=== PATIENT | female | born 1955 | race Two or more races ===

== ENCOUNTER 2018-02-25 11:56 | Emergency (ER) | payer OTHER ==
[2018-02-25 12:00] VITALS: BP 159/81; PULSE 76; TEMP 98; BMI 28.8
--- NOTE | 2018-02-25 12:36 | PDOC ---
History of Present Illness - General Chief Complaint: Injury Stated Complaint: INJURY Time Seen by Provider: 02/25/18 12:29 - History of Present Illness Initial Comments: 62-year-old female with past medical history significant for dyslipidemia she takes a statin she is unsure of her current tetanus status Zentz for evaluation after a mechanical fall at home. She has complaints of left wrist pain right great toe pain and facial abrasions. No post injury nausea vomiting or headache. No loss consciousness. 02/25/18 12:34 Past History - Past Medical History Allergies/Adverse Reactions: Allergies Allergy/AdvReac Type Severity Reaction Status Date / Time No Known Allergies Allergy Verified 02/25/18 12:00 Home Medications: Ambulatory Orders NK [No Known Home Medication] 02/25/18 COPD: No Hypercholesterolemia: Yes - Suicide/Smoking/Psychosocial Hx Smoking History: Never smoked Review of Systems - Review of Systems Musculoskeletal: Yes: See HPI, Joint Pain All Other Systems: Reviewed and Negative *Physical Exam - Vital Signs Last Vital Signs Temp Pulse Resp BP Pulse Ox 98 F 76 18 159/81 100 02/25/18 11:57 02/25/18 11:57 02/25/18 11:57 02/25/18 11:57 02/25/18 11:57 - Physical Exam Comments: HEAD: NC/ there are superfical abrasion on the anterior aspect of the nose and forehead EYES: Conjuntiva clear, EOMI, PERRL Ears: Canals and TM's normal NOSE: No d/c THROAT: Moist mucous membrances, oral pharanx clear, uvula midline NECK: Supple without adenopathy CARDIAC: S1 S2 LUNGS: CTA Full and Equal breath sounds ABDOMEN: Soft NT ND MS: Full ROM in all joints without edema NEUROLOGIC: No gross sensory or motor deficits, NVID, negative Romberg maneuver SKIN: Normal color and temperature no lesions or rashes Left wrist skin color and temperature are normal. Range of motion is full with minimal pain. There is mild tenderness at the base of the fifth metacarpal. 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 No gross sensorimotor deficits. Right great toe there is a small abrasion on the anterior aspect of the great toe just distal to the nail fold. Range of motion is decreased. There is tenderness about the IPJ of the toe. No gross sensorimotor deficits. 02/25/18 12:35 02/25/18 12:45 ED Treatment Course - RADIOLOGY Radiology Studies Ordered: Category Date Time Status FACIAL BONES CT W/O CONTRAST [CT] Stat CT Scan 02/25/18 12:[address] WITHOUT CONTRAST [CT] Stat CT Scan 02/25/18 12:33 Ordered TOE(S) RIGHT [RAD] Stat Radiology 02/25/18 12:33 Ordered WRIST-LEFT [RAD] Stat Radiology 02/25/18 12:33 Ordered Medical Decision Making - Medical Decision Making X-rays is a left hand and right great toe show no evidence of fracture 02/25/18 13:26 02/25/18 13:54 CAT scans which were reviewed and negative localized wound care with soap and water to face follow-up with PCP *DC/Admit/Observation/Transfer Diagnosis at time of Disposition: Facial abrasion, Hand contusion, Toe contusion - Referrals Referrals: Kannan Arenas [Non Staff, Medical] - Larry Augustine MD [Staff Physician] - - Patient Instructions Printed Discharge Instructions: How to Prevent Falls, Contusion, DI for Abrasion Additional Instructions: Return to the emergency room should symptoms worsen or go unresolved. Please follow-up with the primary care doctor in once 2 days further evaluation and treatment options as well as wound management. Also follow-up with orthopedic surgery in 2-3 days should you continue to have pain and your [id number]. Keep the abrasions clean with soap and water and you may leave them open to air. - Post Discharge Activity
[2018-02-25] MEDS ORDERED: DIPHTH,PERTUSS(ACELL),TET 0.5 ML DISP.SYRIN IM ONE (12:45)
== END 2018-02-25 14:02 | disposition home or self-care (01) ==
LOC: JERFT 11:56
PROC: 3E0234Z Introduction of Serum, Toxoid and Vaccine into Muscle, Percutaneous Approach (ICD-10-PCS; principal; 2018-02-25)
DX: S60.212A Contusion of left wrist, initial encounter (principal); S90.111A Contusion of right great toe without damage to nail, initial encounter; S00.81XA Abrasion of other part of head, initial encounter; W18.39XA Other fall on same level, initial encounter; Y93.89 Activity, other specified; Y92.018 Other place in single-family (private) house as the place of occurrence of the external cause; Y99.8 Other external cause status
CPT/HCPCS: 70450-TC; 70486-TC; 73110-TC-LR-FY; 73660-TC-FY; 90715; 99281-25

== ENCOUNTER 2018-12-11 21:06 | Emergency (ER) | payer OTHER ==
--- NOTE | 2018-12-11 21:14 | PDOC ---
Rapid Medical Evaluation Chief Complaint: Injury Time Seen by Provider: 12/11/18 21:08 Medical Evaluation: Allergies Allergy/AdvReac Type Severity Reaction Status Date / Time No Known Allergies Allergy Verified 02/25/18 12:00 12/11/18 21:09 I have performed a brief in-person evaluation of this patient. The patient presents with a chief complaint of: stumbled and fell forward , struck face and nose. thinks had brief LOC, Pertinent physical exam findings: superficial abrasions to forhead/ upper nose I have ordered the following: CtHead/ facial bones The patient will proceed to the ED for further evaluation. 12/11/18 21:15 Discharge Disposition - Diagnosis Neck pain, Facial abrasion, Hand contusion Head trauma Qualifiers: Encounter type: initial encounter Qualified Code(s): S09.90XA - Unspecified injury of head, initial encounter - Discharge Dispostion Disposition: HOME Condition at time of disposition: Improved - Referrals Referrals: Emily Llamas MD [Primary Care Provider] - Call tomorrow - Patient Instructions Printed Discharge Instructions: Concussion Additional Instructions: rest and relax as much as possible. apply bacitracin to the area. keep it covered from the sun Additional Instructions: * Please call your personal physician to report your Emergency Department visit and to report your progress, if any. * If there is no improvement in symptoms in 2 days call your physician. * Return to the Emergency Department for any worsening symptoms. - Post Discharge Activity Work/School Note: Back to Work
[2018-12-11 21:17] VITALS: BP 162/78; PULSE 74; TEMP 98.1; BMI 29.2
--- NOTE | 2018-12-11 22:04 | PDOC ---
History of Present Illness - General Chief Complaint: Injury Stated Complaint: FALL Time Seen by Provider: 12/11/18 21:08 History Source: Patient - History of Present Illness Initial Comments: 12/11/18 23:55 63-year-old female complaining of trip and fall landing on phase after missing a step while wearing flip-flops complaining of neck pain with headache. Denies LOC, nausea, vomiting. Patient is also complaining of left wrist pain. Past medical history of hypercholesterolemia on Zocor 12/11/18 23:58 tetanus last year Past History - Past Medical History Allergies/Adverse Reactions: Allergies Allergy/AdvReac Type Severity Reaction Status Date / Time No Known Allergies Allergy Verified 12/11/18 21:11 Home Medications: Ambulatory Orders NK [No Known Home Medication] 02/25/18 COPD: No Hypercholesterolemia: Yes - Suicide/Smoking/Psychosocial Hx Smoking History: Never smoked Review of Systems - Review of Systems Able to Perform ROS?: Yes Is the patient limited Irish proficient: No Constitutional: No: Symptoms Reported, See HPI, Chills, Diaphoresis, Fever, Loss of Appetite, Malaise, Night Sweats, Weakness, Weight Stable, Unintentional Wgt. Loss, Unexplained wgt Loss, Other Neurological: Yes: Headache *Physical Exam - Vital Signs Last Vital Signs Temp Pulse Resp BP Pulse Ox 98.1 F 74 18 162/78 99 12/11/18 21:07 12/11/18 21:07 12/11/18 21:07 12/11/18 21:07 12/11/18 21:07 - Physical Exam General Appearance: Yes: Appropriately Dressed HEENT: positive: Other (frontal area hematoma to the left side, abrasion to nose and left cheek and chin, no deformity) Extremity: positive: Normal Capillary Refill, Normal Inspection, Normal Range of Motion, Other (able to make a fist with left wrist. Tenderness over the fourth and fifth metacarpal area. No deformity) Integumentary: positive: Normal Color, Dry, Warm Neurologic: positive: Fully Oriented, Alert Medical Decision Making - Medical Decision Making A: facial/ head trauma P: ct head/ c-spine; facial bones left wrist pain: xray no acute fracture *DC/Admit/Observation/Transfer Diagnosis at time of Disposition: Neck pain Head trauma Qualifiers: Encounter type: initial encounter Qualified Code(s): S09.90XA - Unspecified injury of head, initial encounter Facial abrasion Qualifiers: Encounter type: initial encounter Qualified Code(s): S00.81XA - Abrasion of other part of head, initial encounter Hand contusion Qualifiers: Encounter type: initial encounter Laterality: left Qualified Code(s): S60.222A - Contusion of left hand, initial encounter - Discharge Dispostion Disposition: HOME Condition at time of disposition: Improved - Referrals Referrals: Emily Llamas MD [Primary Care Provider] - Call tomorrow - Patient Instructions Printed Discharge Instructions: Concussion Additional Instructions: rest and relax as much as possible. apply bacitracin to the area. keep it covered from the sun Additional Instructions: * Please call your personal physician to report your Emergency Department visit and to report your progress, if any. * If there is no improvement in symptoms in 2 days call your physician. * Return to the Emergency Department for any worsening symptoms. - Post Discharge Activity Forms/Work/School Notes: Back to Work
--- NOTE | 2018-12-11 22:30 | PDOC ---
*Physical Exam - Vital Signs Last Vital Signs Temp Pulse Resp BP Pulse Ox 98.1 F 74 18 162/78 99 12/11/18 21:07 12/11/18 21:07 12/11/18 21:07 12/11/18 21:07 12/11/18 21:07 Medical Decision Making - Medical Decision Making 12/11/18 22:30 Patient seen by the advanced practice provider under my direct supervision. Ancillary testing reviewed as necessary. I agree with plan as outlined by the advanced practice provider. *DC/Admit/Observation/Transfer Diagnosis at time of Disposition: Neck pain Head trauma Qualifiers: Encounter type: initial encounter Qualified Code(s): S09.90XA - Unspecified injury of head, initial encounter Facial abrasion Qualifiers: Encounter type: initial encounter Qualified Code(s): S00.81XA - Abrasion of other part of head, initial encounter Hand contusion Qualifiers: Encounter type: initial encounter Laterality: left Qualified Code(s): S60.222A - Contusion of left hand, initial encounter - Discharge Dispostion Disposition: HOME Condition at time of disposition: Improved - Referrals Referrals: Emily Llamas MD [Primary Care Provider] - Call tomorrow - Patient Instructions Printed Discharge Instructions: Concussion Additional Instructions: rest and relax as much as possible. apply bacitracin to the area. keep it covered from the sun Additional Instructions: * Please call your personal physician to report your Emergency Department visit and to report your progress, if any. * If there is no improvement in symptoms in 2 days call your physician. * Return to the Emergency Department for any worsening symptoms. - Post Discharge Activity Forms/Work/School Notes: Back to Work
[2018-12-11] MEDS ORDERED: ACETAMINOPHEN 325 MG TABLET (FP) PO ONE (23:34)
[2018-12-11] MEDS ORDERED: BACITRACIN 15 GM TUBE TOPICAL OINTMENT TP ONE (23:35)
[2018-12-11] MEDS ORDERED: ACETAMINOPHEN 325 MG TABLET (FP) ONE (23:36)
[2018-12-11] MEDS ORDERED: BACITRACIN 0.9 GM PACKET ONE (23:36)
[2018-12-12] MEDS ORDERED: ACETAMINOPHEN 325 MG TABLET (FP) ONE (00:02)
== END 2018-12-12 00:33 | disposition home or self-care (01) ==
LOC: JER 21:06
DX: S00.81XA Abrasion of other part of head, initial encounter (principal); S60.222A Contusion of left hand, initial encounter; M54.2 Cervicalgia; W10.8XXA Fall (on) (from) other stairs and steps, initial encounter; Y93.89 Activity, other specified; Y92.89 Other specified places as the place of occurrence of the external cause; Y99.8 Other external cause status
CPT/HCPCS: 70450-TC; 70486-TC; 72125-TC; 73110-TC-LT-FY; 73130-TC-LT-FY; 99282-25

== ENCOUNTER 2020-01-26 16:40 | Observation (INO) | payer OTHER ==
--- NOTE | 2020-01-26 16:44 | PDOC ---
History of Present Illness - General Chief Complaint: Syncope/Near Syncope Stated Complaint: FALL Time Seen by Provider: 01/26/20 16:43 History Source: Patient, Family - History of Present Illness Initial Comments: 01/26/20 16:43 Cely Arias is a 64F with PMH HLD presenting with syncope and fall with posterior head injury. Patient was picking vegetables in her garden when she suddenly passed out from s tanding with no warning or prodrome. Per at bedside, went to pick some vegetables when he heard a noise, turned around and patient had passed out onto the ground. Was unconscious for about a minute before she woke up and he helped her to a chair, was back to baseline mental status at this time but EMS called. Patient denies chest pain, SOB, cough, fever, palpitations, abd pain, urinary s x, constipation/diarrhea. Per at baseline mental status. Denies vision changes, dizziness, weakness, numbness. Able to walk after event. Says she felt well today. No sick contacts. Ate breakfast and lunch, drank 2 glasses of water prior to event. No prior cardiac history. Tripped and fell two years ago and had face laceration, had Boostrix then. NKDA. No PSH. Only med is simvastatin, no AC. Denies alcohol/drugs/tobacco use. Past History - Medical History Allergies/Adverse Reactions: Allergies Allergy/AdvReac Type Severity Reaction Status Date / Time No Known Allergies Allergy Verified 01/26/20 16:56 Home Medications: Ambulatory Orders Simvastatin [Zocor] 20 mg PO HS 01/26/20 COPD: No Hypercholesterolemia: Yes - Psycho-Social/Smoking History Smoking History: Never smoked Review of Systems - Review of Systems Able to Perform ROS?: Yes Constitutional: No: Symptoms Reported HEENTM: No: Symptoms Reported Respiratory: No: Symptoms reported Cardiac (ROS): Yes: Syncope ABD/GI: No: Symptoms Reported : No: Symptoms Reported Musculoskeletal: No: Symptoms Reported Integumentary: No: Symptoms Reported Neurological: No: Symptoms reported Endocrine: No: Symptoms Reported Hematologic/Lymphatic: No: Symptoms Reported All Other Systems: Reviewed and Negative *Physical Exam - Physical Exam General Appearance: Yes: Nourished, Appropriately Dressed, Other (resting comfortably in bed in NAD, some blood in hair). No: Apparent Distress HEENT: positive: EOMI, HINA, Normal Voice, Symmetrical, Pharynx Normal, Hearing Grossly Normal. negative: Scleral Icterus (R), Scleral Icterus (L), Pharyngeal Erythema, Tonsillar Exudate, Tonsillar Erythema Neck: positive: Trachea midline, Normal Thyroid, Supple. negative: Tender, Rigid, Lymphadenopathy (R), Lymphadenopathy (L), Tender lateral, Tender midline Respiratory/Chest: positive: Lungs Clear, Normal Breath Sounds. negative: Chest Tender, Respiratory Distress, Accessory Muscle Use, Decreased Breath Sounds, Crackles, Rales, Rhonchi, Stridor, Wheezing, Plerual Rub Cardiovascular: positive: Regular Rhythm, Regular Rate. negative: Tachycardia Gastrointestinal/Abdominal: positive: Normal Bowel Sounds, Flat, Soft. negative: Tender, Organomegaly, Pulsatile Mass, Distended, Guarding, Rebound, Hernia Musculoskeletal: positive: Normal Inspection, Vertebral Tenderness. negative: CVA Tenderness Extremity: positive: Normal Capillary Refill, Normal Inspection, Normal Range of Motion, Pelvis Stable. negative: Tender, Pedal Edema, Swelling, Calf Tenderness Integumentary: positive: Normal Color, Dry, Warm, Other (abrasion to posterior head with blood in hair, no active bleeding) Neurologic: positive: computer analyst II-XII NML intact, Fully Oriented, Alert, Normal Mood/Affect, Normal Response, Motor Strength 5/5, Finger to Nose (normal). negative: Facial Droop, Numbness, Sensory Deficit Procedures - Laceration/Wound Repair Posterior Head Wound Length: to 2.5 cm (1mm) Wound Explored: clean Wound's Depth, Shape: superficial Irrigated w/ Saline: Yes Betadine Prep: No Wound Debrided: minimal Wound Repaired With: Meg (2 meg placed) Heart Score/ECG Review - History History: Highly suspicious - Electrocardiogram EKG: Non specific repolarization disturbance - Age Age: >/= 65 - Risk Factors Risk Factors Heart Score: Yes Hx Hypercholesterolemia Based on the list above the patient has:: 1-2 risk factors ED Treatment Course - LABORATORY CBC & Chemistry Diagram: 01/26/20 17:10 01/26/20 17:10 Medical Decision Making - Medical Decision Making 01/26/20 17:26 Patient his history of HLD and no other cardiac history or anticoagulation presenting with sudden onset syncope without prodrome concerning for arrhythmia vs. ACS. Lower suspicion of dehydration vs. metabolic abnormality vs. TIA, no neuro deficits on exam. BP 170/85, patient has had HTN in the past but having TOMPKINS at this time, bringing to CT REE. Has small laceration to back of head without active bleeding, needs 1 staple, will fix after CT head. No need for Boostrix, got 2 years ago here. Evaluating broadly via: CBC/CMP/CP/ECG/CXR/Mag/Coags/UA/UC, with CT head and c- spine for evaluation of fall. Giving Ofirmev for pain control. ECG shows sinus rhythm with 1st degree AV block, HR 78, QTc 449, no DONTE/D or TWI. CXR unremarkable. HEART score 5, concern for 6-week cardiac mortality, will admit to tele/obs for syncope. Labs notable for: - CBC WNL - Coags WNL - CMP WNL - CP WNL 01/26/20 18:17 CT head done. Fixing laceration with [address] scan results. 01/26/20 18:55 Patient will be signed out to admitting residents. Signing out to night team. Plan for CT read and admit to tele/obs for syncope. Discharge - Discharge Information Problems reviewed: Yes Clinical Impression/Diagnosis: Syncope and collapse Condition: Stable - Admission Yes - Follow up/Referral Referrals: Emily Llamas MD [Primary Care Provider] - - Patient Discharge Instructions - Post Discharge Activity
[2020-01-26 16:56] VITALS: BMI 26.7
[2020-01-26] MEDS ORDERED: ACETAMINOPHEN 1000 MG/100 ML VIAL (NON FORMULARY) IVPB ONE (17:10)
[2020-01-26] MEDS ORDERED: ACETAMINOPHEN INJECTION 100 ML IVPB ONE (17:16)
[2020-01-26 17:29] LABS: BASO % 1.3 % (0-2.0); EOS % 1.9 % (0-4.5); HEMATOCRIT 36.3 % (32.4-45.2); LYMPH % 30.1 % (8-40); MCH 30.1 pg (25.7-33.7); MEAN PLT VOLUME 8.2 fl (7.5-11.1); MONO % 9.7 % (3.8-10.2); PLATELET COUNT 225 K/MM3 (134-434); RBC 3.99 M/mm3 (3.60-5.2); RDW 13.2 % (11.6-15.6); WHITE BLOOD COUNT 5.2 K/mm3 (4.0-10.0)
[2020-01-26 17:37] LABS: INR 0.97 (0.83-1.09); PROTHROMBIN TIME (PATIENT) 11.5 SEC (9.7-13.0)
[2020-01-26 17:40] LABS: ACTIVATED PTT 30.2 SECONDS (25.2-36.5)
[2020-01-26 18:03] LABS: ALBUMIN 3.8 g/dl (3.4-5.0); ALK PHOS 55 U/L (45-117); ANION GAP 9 MMOL/L (8-16); BILIRUBIN,TOTAL 0.3 mg/dL (0.2-1); BLOOD UREA NITROGEN 10.2 mg/dL (7-18); CALCIUM 8.8 mg/dL (8.5-10.1); CHLORIDE 105 mmol/L (98-107); CO2 25 mmol/L (21-32); CREATININE 0.8 mg/dL (0.55-1.3); GLUCOSE,RANDOM 156 mg/dL (74-106); MAGNESIUM 1.9 mg/dL (1.8-2.4); N-TERMINAL BNP 47.4 pg/ml (5-125); POTASSIUM 3.9 mmol/L (3.5-5.1); SGOT/AST 15 U/L (15-37); SGPT/ALT 23 U/L (13-61); SODIUM 139 mmol/L (136-145)
--- NOTE | 2020-01-26 18:23 | PDOC ---
Documentation entered by Deb Quintanilla SCRIBE, acting as scribe for Janee Vasquez MD. Janee Vasquez MD: This documentation has been prepared by the Socorro soares Xhesika, SCRIBE, under my direction and personally reviewed by me in its entirety. I confirm that the documentation accurately reflects all work, treatment, procedures, and medical decision making performed by me. Attending Attestation - Resident Resident Name: VinayTommy - ED Attending Attestation I have performed the following: I have examined & evaluated the patient, The case was reviewed & discussed with the resident, I agree w/resident's findings & plan, Exceptions are as noted - HPI HPI: 01/26/20 17:07 The patient is a 64y/o F with a PMH of HLD who presents to the ED with posterior head laceration s/p syncope. Pt states she was outside picking vegetables in her garden when she passed out, hitting the back of her head. Per , the patient was unconscious for about a minute before waking up. states, the pt went back to baseline shortly after. Pt does not recall the event all she remembers is giving her the vegetables. Pt reports a headache but denies any other complaints. Pt states she felt well throughout her day today. Pt denies chest pain, SOB, fever, chills, cough/ N/V/D. Pt denies any URI symptoms. Allergies: NKDA PCP: Emily Johnson - Physicial Exam PE: 01/26/20 18:19 awake alert no acute distress posterior aspect of the head shows a small punctate scalp laceration approximately 1 mm with some oozing no palpable skull defect cranial nerves are intact patient is awake alert and oriented x3 lungs are clear bilaterally heart is regular murmurs rubs or gallops abdomen soft nontender extremities are atraumatic nontender with full range of motion of all 4 extremities no noted peripheral edema or calf tenderness 2+ symmetric DP PT pulses. Neurologically the patient is a GCS of 15 strength is symmetric throughout and sensation is intact speech is clear - Medical Decision Making 01/26/20 18:20 64-year-old female status post syncopal episode while in the garden now complaining of a headache did hit her head with noted scalp laceration. Differential includes dysrhythmia ACS dehydration orthostasis anemia electrolyte abnormality or dysrhythmia. Concerns for intracranial hemorrhage or trauma secondary to her fall plan CT head this chest x-ray EKG troponin CBC CMP Chest x-ray is unremarkable CT head is without acute bleed or other abnormalities awaiting for official radiology read. EKG shows normal sinus rhythm no ST elevations or depressions normal rate of 78 bpm labs including CBC CMP and troponin are all negative or normal plan to admit the patient to telemetry for syncope stable placed to the single scalp laceration Discharge - Discharge Information Problems reviewed: Yes Clinical Impression/Diagnosis: Syncope and collapse Condition: Stable - Follow up/Referral Referrals: Emily Llamas MD [Primary Care Provider] - - Patient Discharge Instructions - Post Discharge Activity
--- NOTE | 2020-01-26 19:29 | PN ---
Teaching Attending Note Name of Resident: Johnie Flor ATTENDING PHYSICIAN STATEMENT I saw and evaluated the patient. I reviewed the resident's note and discussed the case with the resident. I agree with the resident's findings and plan as documented. SUBJECTIVE: Patient is a 64 year old woman with a PMH of Hyperlipidemia, Palpitations, C- section and Falls presenting with syncope and fall with posterior head injury. Patient was picking vegetables in her garden when she suddenly passed out from standing with no warning or prodrome. Per at bedside, went to pick some vegetables when he heard a noise, turned around and patient had passed out onto the ground. Was unconscious for about a minute before she woke up and he helped her to a chair, was back to baseline mental status at this time but EMS called. Patient denies vision change, weakness, chest pain, shortness of breath, abdominal pain, headache, palpitations, dizziness, fever, chills, nausea, vomiting, diarrhea, constipation, dysuria, frequency, urgency, melena, hematochezia or hematuria. Per at baseline mental status. Able to walk after event. Says she felt well today. No sick contacts. Ate breakfast and lunch, drank 2 glasses of water prior to event. No prior cardiac history. 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 Tripped and fell two years ago and had face laceration, had Boostrix then. Denies alcohol, tobacco or illicit drug use. No sick contacts or recent travels. Family history is unremarkable. OBJECTIVE: Alert and not orthostatic Vital Signs Period Temp Pulse Resp BP Sys/Davison Pulse Ox Last 24 Hr 97.9 F-99 F 70-80 18-20 161-172/84-91 98-98 HEENT: No Jaundice, eye redness or discharge, PERRLA, EOMI. Normocephalic; small laceration in occipital scalp. External ears are normal and hearing is grossly intact. No nasal discharge. Neck: Supple, nontender. No palpable adenopathy or thyromegaly. No JVD Chest: Good effort. Clear to auscultation and percussion. Heart: Regular. No S3, rub or murmur Abdomen: Not distended, soft, nontender and no HSM. No rebound or guarding. Normal bowel sounds. Ext: Peripheral pulses intact. No leg edema. Skin: Warm and dry. No petechiae, rash or ecchymosis. Neuro: Alert. Oriented x3. CN 2-12 grossly intact. Sensation grossly intact in all four extremities and DTR are symmetric. Psych: Appropriate mood and affect. Good insight. Home Medications Medication Instructions Recorded Simvastatin [Zocor] 20 mg PO HS 01/26/20 Abnormal Lab Results 01/26/20 01/26/20 17:10 17:48 Random Glucose 156 H Ur Specific [place] 1.008 L Current Medications Generic Name Dose Route Start Last Admin Trade Name Bossman PRN Reason Stop Dose Admin Ceftriaxone Sodium 1 gm/ 50 mls @ 100 mls/hr 01/26/20 21:15 01/26/20 21:39 Dextrose IVPB 100 mls/hr DAILY DUTCH Administration Protocol ASSESSMENT AND PLAN: 1. Syncope/Subdural hematoma/?UTI - Etiology of syncope unclear. Preliminary report of noncontrast head CT scan shows trace subdural hematoma with no evidence of acute intracranial pathology. Neurosurgery consulted by ER staff, and no intervention recommended for subdural hematoma. C-spine CT shows multilevel multi-factorial spondylosis with no fracture or subluxation. CXR sh ows cardiomegaly with increased interstitial markings and possible RUL nodule - out patient follow up with CT chest for nodule. EKG shows NSR at 78/minute and QTc 449, 1o AV block with no ischemic ST-T wave changes. Initial troponin is negative. Will admit to telemetry, treat with IV Ceftriaxone for UTI, give DPT vaccine, trend troponin, get ECHO, TSH, urine toxicology, carotid doppler, fasting lipids, brain MRI, do speech and swallow evaluation, neurochecks and implement fall/aspiration/seizure precautions. Consult PT/Neurology. Viral testing for COVID-19 ordered and patient placed on airborne, droplet and contact isolation. Will continue comprehensive care for all of patients comorbid conditions. 2. ?Hypertension May have undiagnosed hypertension. BP was very high (>155/90) during her ER visits in 2018 and 2019. Will monitor closely and consider starting HCTZ 12.5 mg on discharge. Patient counseled on the injurious effects of uncontrolled hypertension. Nonpharmacologic measures to control hypertension like weight loss, salt restriction and exercise stressed. Importance of adherence to treatment regimen and attainment of normotension emphasized. 3. DVT prophylaxis - Lovenox 40 mg SQ q 24 hours. 4. Advance directives - Full code
--- NOTE | 2020-01-26 19:49 | HP ---
CHIEF COMPLAINT: syncopal episode PCP: HISTORY OF PRESENT ILLNESS: Patient is a 64 year old female with history of hyperlipidemia, palpitations presents after syncopal episode. Occurred approx 13:00 in afternoon. Patient endorses that she was outside in vegetable garden picking peppers, and beans with her . She states she had asked her to get a few more vegetables when she suddenly lost consciousness and fell. Patient denies any prodromal chest pain, palpitations, shortness of breath, dizziness, changes in vision, or nausea. This was not witnessed by the as he had walked away, however he did hear her fall. She was on ground for approx one minute, and after he helped her up she remained confused for approx five minutes. He denies any shaking, bowel or bladder incontinence. Patient states that she ate a croissant with coffee for breakfast with two glasses of water. Patient endorses an exercise stress test performed approx one year ago for workup of palpitations. She states normal results. ER course was notable for: (1) CT head (2) CT cervical spine (3) EKG reveals sinus rhythm at 78 BPM with first degree AV block. 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 Lives in home with . Ambulates without cane or walker; independent in activities daily living. Smoking: Denies smoking cigarettes Alcohol: Denies alcohol consumption Drugs: Denies illicit drug use Allergies No Known Allergies Allergy (Verified 01/26/20 16:56) HOME MEDICATIONS: Home Medications Medication Instructions Recorded Simvastatin [Zocor] 20 mg PO HS 01/26/20 REVIEW OF SYSTEMS CONSTITUTIONAL: Absent: fever, chills, diaphoresis, generalized weakness, malaise, loss of appetite, weight change HEENT: Absent: rhinorrhea, nasal congestion, throat pain, throat swelling, difficulty swallowing, mouth swelling, ear pain, eye pain, visual changes CARDIOVASCULAR: Admits: syncopal episode. Absent: chest pain, palpitations, irregular heart rate, lightheadedness, peripheral edema RESPIRATORY: Absent: cough, shortness of breath, dyspnea with exertion, orthopnea, wheezing, stridor, hemoptysis GASTROINTESTINAL: Absent: abdominal pain, abdominal distension, nausea, vomiting, diarrhea, constipation, melena, hematochezia GENITOURINARY: Absent: dysuria, frequency, urgency, hesitancy, hematuria, flank pain, genital pain MUSCULOSKELETAL: Absent: myalgia, arthralgia, joint swelling, back pain, neck pain SKIN: Absent: rash, itching, pallor HEMATOLOGIC/IMMUNOLOGIC: Absent: easy bleeding, easy bruising, lymphadenopathy, frequent infections ENDOCRINE: Absent: unexplained weight gain, unexplained weight loss, heat intolerance, cold intolerance NEUROLOGIC: Absent: headache, focal weakness or paresthesias, dizziness, unsteady gait, seizure, mental status changes, bladder or bowel incontinence PSYCHIATRIC: Absent: anxiety, depression, suicidal or homicidal ideation, hallucinations. PHYSICAL EXAMINATION Vital Signs - 24 hr 01/26/20 01/26/20 01/26/20 16:51 17:22 18:56 Temperature 99 F 97.9 F Pulse Rate 80 Pulse Rate [ 78 70 Apical] Respiratory 18 18 20 Rate Blood Pressure 170/91 Blood Pressure 172/85 H 161/84 [Right Arm] O2 Sat by Pulse 98 98 98 Oximetry (%) GENERAL: The patient is awake, alert, and fully oriented, in no acute distress. HEAD: Normocephalic. 1cm laceraion, stapled over vertex. EYES: PERRL, extraocular movements intact, sclera anicteric, conjunctiva clear. ENT: Oropharynx clear, without erythema or exudates. Moist mucous membranes. Negative tongue bite lesions. NECK: Trachea midline, full range of motion. Supple without lymphadenopathy. LUNGS: Breath sounds equal, clear to auscultation bilaterally. No wheezes, no crackles. No accessory muscle use. HEART: Regular rate and rhythm. S1, S2 without murmur, rub or gallop. ABDOMEN: Soft, nondistended, nontender to light and deep palpation x4 quadrants. No rebound tenderness, no guarding. Normoactive bowel sounds x4 quadrants. No hepatosplenomegaly, no masses appreciated. EXTREMITIES: 2+ radial, dorsalis pedis pulses bilaterally. Warm, well-perfused. No lower extremity edema bilaterally. NEUROLOGICAL: Cranial nerves II through XII grossly intact. Normal speech. No gross focal deficits. Strength 5/5 bilateral upper and lower extremities. Sensation intact bilaterally. PSYCH: Normal mood, normal affect upon my encounter. SKIN: Warm, dry. Laboratory Results - last 24 hr 01/26/20 01/26/20 01/26/20 17:10 17:10 17:10 WBC 5.2 RBC 3.99 Hgb 12.0 Hct 36.3 MCV 91.0 MCH 30.1 MCHC 33.0 RDW 13.2 Plt Count 225 MPV 8.2 Absolute Neuts (auto) 3.0 Neutrophils % 57.0 Lymphocytes % 30.1 Monocytes % 9.7 Eosinophils % 1.9 Basophils % 1.3 Nucleated RBC % 0 PT with INR 11.50 INR 0.97 PTT (Actin FS) 30.2 Sodium 139 Potassium 3.9 Chloride 105 Carbon Dioxide 25 Anion Gap 9 BUN 10.2 Creatinine 0.8 Est GFR (CKD-EPI)AfAm 89.67 Est GFR (CKD-EPI)NonAf 77.37 Random Glucose 156 H Calcium 8.8 Magnesium 1.9 Total Bilirubin 0.3 AST 15 ALT 23 Alkaline Phosphatase 55 Creatine Kinase 84 Troponin I < 0.02 B-Natriuretic Peptide 47.4 Total Protein 7.0 Albumin 3.8 Blood Type Antibody Screen 01/26/20 17:10 WBC RBC Hgb Hct MCV MCH MCHC RDW Plt Count MPV Absolute Neuts (auto) Neutrophils % Lymphocytes % Monocytes % Eosinophils % Basophils % Nucleated RBC % PT with INR INR PTT (Actin FS) Sodium Potassium Chloride Carbon Dioxide Anion Gap BUN Creatinine Est GFR (CKD-EPI)AfAm Est GFR (CKD-EPI)NonAf Random Glucose Calcium Magnesium Total Bilirubin AST ALT Alkaline Phosphatase Creatine Kinase Troponin I B-Natriuretic Peptide Total Protein Albumin Blood Type B NEGATIVE Antibody Screen Negative ASSESSMENT/PLAN: Patient is a 64 year old female with history of hyperlipidemia, palpitations presents after syncopal episode. Syncopal episode -Unclear etiology, however concerning for cardiac etiology; Patient endorses palpitations in the past. Her EKG reveals sinus rhythm with 1st degree AV henrry (MN 242msec). - UA concerning for UTI, will treat with Ceftriaxone 1 rowena IV daily. Follow urine culture. -Obtain MRI brain -Cardiac telemetry monitoring -Cardiac transthoracic ECHO -Carotid duplex -Fasting lipid panel -Cardiology consult (Dr. Randall) -Neurology consult (Dr. Walker) Subdural hematoma -Noted on CT head. Neurosurgery (Dr. Farfan) was consulted by the ED; no acute intervention indicated at this time. -Discussed that Patient may need repeat CT head before discharge Hypertension -Patient endorses that her home BP ranges in the 130s/ 80s, however numerous prior hospital presentations reveal significant hypertension. -Monitor BP closely, consider initiating antihypertensive History of hyperlipidemia -Continue home Simvastatin FEN -No IV fluids indicated -Follow BMP -Patient tolerating bedside swallow evaluation. Begin clear liquid diet. Follow speech, swallow evaluation Prophylaxis -Holding chemical anticoagulation in setting of subdural hematoma. Disposition -Telemetry observation Family Medical History Family History: As Documented Visit type - Medication Review Med list reviewed for High Risk Meds patients 65 and older: Yes - Emergency Visit Emergency Visit: Yes ED Registration Date: 01/26/20 Care time: The patient presented to the Emergency Department on the above date and was hospitalized for further evaluation of their emergent condition. - New Patient This patient is new to me today: Yes Date on this admission: 01/27/20 - Critical Care Critical Care patient: No ATTENDING PHYSICIAN STATEMENT I saw and evaluated the patient. I reviewed the resident's note and discussed the case with the resident. I agree with the resident's findings and plan as documented. SUBJECTIVE: OBJECTIVE: ASSESSMENT AND PLAN:
[2020-01-26 20:16] LABS: EPI CELLS 4 /uL (0-25.1); HYALINE CASTS 0 /uL (0-3.1); PH,URINE 5.5 (5.0-8.0); URINE APPEARANCE CLEAR; URINE BACTERIA 79 /uL (0-1359); URINE BILIRUBIN NEGATIVE (NEGATIVE); URINE COLOR YELLOW; URINE GLUCOSE (UA) NEGATIVE (NEGATIVE); URINE KETONE NEGATIVE (NEGATIVE); URINE LEUK ESTERASE TRACE (NEGATIVE); URINE NITRITE NEGATIVE (NEGATIVE); URINE PROTEIN NEGATIVE (NEGATIVE); URINE RBC 4 /uL (0-23.9); URINE UROBILINOGEN 0.2 mg/dL (0.2-1.0); URINE WBC 22 /uL (0-25.8)
[2020-01-26] MEDS ORDERED: CEFTRIAXONE 1 GM in DEXTROSE 5%-WATER - 50 ML IVPB SCH (21:15)
[2020-01-26] MEDS ORDERED: CEFTRIAXONE 1 GM/50 ML BAG ONE (21:31)
[2020-01-27 01:45] LABS: URINE APPEARANCE CLEAR; URINE BILIRUBIN NEGATIVE (NEGATIVE); URINE COLOR YELLOW; URINE GLUCOSE (UA) NEGATIVE (NEGATIVE); URINE KETONE NEGATIVE (NEGATIVE); URINE LEUK ESTERASE NEGATIVE (NEGATIVE); URINE NITRITE NEGATIVE (NEGATIVE); URINE PROTEIN NEGATIVE (NEGATIVE); URINE UROBILINOGEN 0.2 mg/dL (0.2-1.0)
[2020-01-27] MEDS: ACETAMINOPHEN 325 MG TABLET (FP) PO PRN ×3 (01:51→15:52)
[2020-01-27 01:53] LABS: COCAINE, UR NEGATIVE ng/ml (CUTOFF=300); PHENCYCLIDINE,URINE NEGATIVE ng/ml (CUTOFF=25)
[2020-01-27 01:58] LABS: METHADONE, UR NEGATIVE ng/ml (CUTOFF=300); OPIATES, URI NEGATIVE ng/ml (CUTOFF=300); URINE AMPHETAMINES NEGATIVE ng/ml (CUTOFF=500); URINE BARBITURATES NEGATIVE ng/ml (CUTOFF=200); URINE BENZODIAZEPINES NEGATIVE ng/ml (CUTOFF=200)
[2020-01-27 07:09] LABS: HEMATOCRIT 37.4 % (32.4-45.2); HEMOGLOBIN 12.4 GM/dL (10.7-15.3); MCH 29.9 pg (25.7-33.7); MCHC 33.2 g/dl (32.0-36.0); MEAN CELL VOLUME 90.1 fl (80-96); MEAN PLT VOLUME 8.2 fl (7.5-11.1); PLATELET COUNT 240 K/MM3 (134-434); RBC 4.15 M/mm3 (3.60-5.2); RDW 13.2 % (11.6-15.6); WHITE BLOOD COUNT 6.5 K/mm3 (4.0-10.0)
[2020-01-27 07:21] LABS: ALBUMIN 3.5 g/dl (3.4-5.0); BLOOD UREA NITROGEN 16.2 mg/dL (7-18); CALCIUM 8.6 mg/dL (8.5-10.1); CREATININE 0.8 mg/dL (0.55-1.3); PHOSPHOROUS 4.3 mg/dL (2.5-4.9); POTASSIUM 3.7 mmol/L (3.5-5.1); TOT PROT 6.6 g/dl (6.4-8.2)
[2020-01-27 07:32] LABS: BILIRUBIN,TOTAL 0.3 mg/dL (0.2-1)
--- NOTE | 2020-01-27 08:24 | CON.CARD ---
Consult Consult Specialty:: cardio - History of Present Illness Chief Complaint: fainted History of Present Illness: 64 year old female here with syncope. Occurred approx 13:00 in afternoon. was working outside in vegetable garden with . came on suddenly, fell to ground. Patient denies any prodromal chest pain, palpitations, shortness of breath, dizziness. Fall not witnessed by the as he had walked away, however he did hear her fall--estimated LOC 1 min. reports after he helped her up she remained confused for approx five minutes. He denies any shaking, bowel or bladder incontinence. reported PO intake = croissant with coffee for breakfast with two glasses of water. Patient endorses an exercise stress test performed approx one year ago for wor kup of palpitations. She states normal results--she cannot recall name of veterinary medicine doctor. PMH: HPL - Smoking History Smoking history: Never smoked Home Medications - Allergies Allergies/Adverse Reactions: Allergies Allergy/AdvReac Type Severity Reaction Status Date / Time No Known Allergies Allergy Verified 01/26/20 16:56 - Home Medications Home Medications: Ambulatory Orders Simvastatin [Zocor] 20 mg PO HS 01/26/20 Vital Signs: Vital Signs Temperature 97.9 F 01/26/20 18:56 Pulse Rate 75 01/27/20 06:25 Respiratory Rate 18 01/27/20 06:25 Blood Pressure 153/89 01/27/20 06:25 O2 Sat by Pulse Oximetry (%) 100 01/27/20 06:25 - Other Data Labs, Other Data: CBC, BMP 01/27/20 05:34 01/27/20 05:34 INR, PTT INR 0.97 (0.83-1.09) 01/26/20 17:10 Troponin, BNP 01/26/20 01/26/20 17:10 22:40 Troponin I < 0.02 < 0.02 B-Natriuretic Peptide 47.4 Troponin, BNP 01/26/20 01/26/20 17:10 22:40 Troponin I < 0.02 < 0.02 B-Natriuretic Peptide 47.4 Assessment/Plan ECG: CXR: clear lungs/pleura syncope: -sudden onset, resulted in SDH. no prodrome typical of vasovagal, no clear predisposing vagal triggers (outside though not very hot weather), labs not pre- renal -trop neg x 2 -tele monitoring -echo subdural hematoma: -neurosurgery aware, monitoring HTN: -not controlled here
--- NOTE | 2020-01-27 08:30 | PN ---
Progress Note (short form) - Note Progress Note: pt sees Dr. Emily Llamas of [facility]. Has seen Dr. Wilkins as outpt previously. I d/w'd Dr Wilkins--he is aware of her presentation and his group will see today.
[2020-01-27] MEDS ORDERED: ACETAMINOPHEN 325 MG TABLET (FP) ONE ×2 (09:42→15:51)
[2020-01-27] MEDS ORDERED: amLODIPine BESYLATE 5 MG TABLET (FP) ONE ×2 (10:02→13:05)
[2020-01-27] MEDS: amLODIPine BESYLATE 5 MG TABLET (FP) PO SCH (10:03)
--- NOTE | 2020-01-27 12:03 | CON.CARD ---
Consult Consult Specialty:: Cardiology Referred by:: Olimpia Reason for Consultation:: Syncope/fall - History of Present Illness Chief Complaint: I fell and passed out History of Present Illness: The patient is a 64-year-old female with a history of hyperlipidemia, hypertension, now presenting after a fall and most likely loss of consciousness. As per the patient, and her , the patient was in the backyard collecting vegetables when she suddenly collapsed. The patient sustained scalp laceration. The patient denied chest pains any shortness of breath prior to or since the fall. No palpitations. She is currently comfortable and symptom-free. Offering no specific complaints. No fevers, chills, cough, GI problems. No clinical evidence of coronavirus infection. - History Source History Provided By: Patient, Significant Other Limitations to Obtaining History: No Limitations - Past Medical History Cardio/Vascular: Yes: Other (Hyperlipidemia) - Smoking History Smoking history: Never smoked Home Medications - Allergies Allergies/Adverse Reactions: Allergies Allergy/AdvReac Type Severity Reaction Status Date / Time No Known Allergies Allergy Verified 01/26/20 16:56 - Home Medications Home Medications: Ambulatory Orders Simvastatin [Zocor] 20 mg PO HS 01/26/20 Review of Systems - Review of Systems Constitutional: reports: No Symptoms Eyes: reports: No Symptoms HENT: reports: No Symptoms Neck: reports: No Symptoms Cardiovascular: reports: No Symptoms Respiratory: reports: No Symptoms Gastrointestinal: reports: No Symptoms Genitourinary: reports: No Symptoms Breasts: reports: No Symptoms Reported Musculoskeletal: reports: No Symptoms Integumentary: reports: No Symptoms Neurological: reports: No Symptoms Endocrine: reports: No Symptoms Hematology/Lymphatic: reports: No Symptoms Psychiatric: reports: No Symptoms Vital Signs: Vital Signs Temperature 98.2 F 01/27/20 09:10 Pulse Rate 70 01/27/20 09:10 Respiratory Rate 18 01/27/20 09:10 Blood Pressure 189/91 H 01/27/20 09:10 O2 Sat by Pulse Oximetry (%) 99 01/27/20 09:10 Constitutional: Yes: Well Nourished, No Distress, Calm Eyes: Yes: WNL, Conjunctiva Clear, EOM Intact HENT: Yes: WNL, Normocephalic Neck: Yes: WNL, Supple, Trachea Midline Respiratory: Yes: WNL, Regular, CTA Bilaterally Gastrointestinal: Yes: WNL, Normal Bowel Sounds, Soft Renal/: Yes: WNL Cardiovascular: Yes: WNL, Regular Rate and Rhythm JVD: No Carotid Bruit: No PMI: Non-Displaced Heart Sounds: Yes: S1, S2 Extremities: Yes: WNL Edema: No Peripheral Pulses WNL: Yes Integumentary: Yes: WNL Neurological: Yes: WNL, Alert, Oriented ...Motor Strength: WNL - Other Data Labs, Other Data: CBC, BMP 01/27/20 05:34 01/27/20 05:34 INR, PTT INR 0.97 (0.83-1.09) 01/26/20 17:10 Troponin, BNP 01/26/20 01/26/20 17:10 22:40 Troponin I < 0.02 < 0.02 B-Natriuretic Peptide 47.4 Troponin, BNP 01/26/20 01/26/20 17:10 22:40 Troponin I < 0.02 < 0.02 B-Natriuretic Peptide 47.4 Assessment/Plan 64-year-old female with history of hyperlipidemia now presenting after a syncopal event, fall sustaining scalp laceration. The patient is doing quite well. Mentating well. Denies chest pains and shortness of breath. No palpitations. Denied prior such events. Neurologically intact. There is no evidence of ischemia nor acute coronary syndrome. ECG was not available. The patient has a regular rhythm. Admit to a monitored setting. Start Norvasc 5 mg daily for better blood pressure control. Please arrange for an echocardiogram. Carotid Dopplers are pending. Head CT is pending. No need for further work-up at this point. Cardiac stable.
[2020-01-27] MEDS ORDERED: amLODIPine BESYLATE 5 MG TABLET (FP) PO ONE (12:50)
--- NOTE | 2020-01-27 15:36 | PN ---
Progress Note (short form) - Note Progress Note: SUBJECTIVE: No Headache/visual disturbance/limb numbness, weakness, tingling. OBJECTIVE: Afebrile, Hemodynamically Stable Last Vital Signs Temp Pulse Resp BP Pulse Ox 98.2 F 69 18 180/94 H 99 01/27/20 09:10 01/27/20 12:33 01/27/20 12:33 01/27/20 12:33 01/27/20 11:00 HEENT - Laceration to occiput s/p eve Heart - S1, S2, RRR Lungs - clear to auscultation Abdomen - soft, non-tender. Bowel Sounds normal. Extremities - No edema, no calf tenderness. Neuro - AAO x 3. HINA. EOMI. Tone/Power normal all extremities. Laboratory Results - last 24 hr 01/26/20 01/26/20 01/26/20 17:10 17:10 17:10 WBC 5.2 RBC 3.99 Hgb 12.0 Hct 36.3 MCV 91.0 MCH 30.1 MCHC 33.0 RDW 13.2 Plt Count 225 MPV 8.2 Absolute Neuts (auto) 3.0 Neutrophils % 57.0 Lymphocytes % 30.1 Monocytes % 9.7 Eosinophils % 1.9 Basophils % 1.3 Nucleated RBC % 0 PT with INR 11.50 INR 0.97 PTT (Actin FS) 30.2 Sodium 139 Potassium 3.9 Chloride 105 Carbon Dioxide 25 Anion Gap 9 BUN 10.2 Creatinine 0.8 Est GFR (CKD-EPI)AfAm 89.67 Est GFR (CKD-EPI)NonAf 77.37 Random Glucose 156 H Calcium 8.8 Phosphorus Magnesium 1.9 Total Bilirubin 0.3 AST 15 ALT 23 Alkaline Phosphatase 55 Creatine Kinase 84 Troponin I < 0.02 B-Natriuretic Peptide 47.4 Total Protein 7.0 Albumin 3.8 Triglycerides Cholesterol Total LDL Cholesterol HDL Cholesterol Urine Color Urine Appearance Urine pH Ur Specific [place] Urine Protein Urine Glucose (UA) Urine Ketones Urine Blood Urine Nitrite Urine Bilirubin Urine Urobilinogen Ur Leukocyte Esterase Urine WBC (Auto) Urine RBC (Auto) Urine Casts (Auto) U Epithel Cells (Auto) Urine Bacteria (Auto) Opiates Screen Methadone Screen Barbiturate Screen Phencyclidine Screen Ur Amphetamines Screen MDMA (Ecstasy) Screen Benzodiazepines Screen Cocaine Screen U Marijuana (THC) Screen COVID-19 (KAILASH) Blood Type Antibody Screen 08/15/20 08/15/20 08/15/20 17:10 17:48 18:45 WBC RBC Hgb Hct MCV MCH MCHC RDW Plt Count MPV Absolute Neuts (auto) Neutrophils % Lymphocytes % Monocytes % Eosinophils % Basophils % Nucleated RBC % PT with INR INR PTT (Actin FS) Sodium Potassium Chloride Carbon Dioxide Anion Gap BUN Creatinine Est GFR (CKD-EPI)AfAm Est GFR (CKD-EPI)NonAf Random Glucose Calcium Phosphorus Magnesium Total Bilirubin AST ALT Alkaline Phosphatase Creatine Kinase Troponin I B-Natriuretic Peptide Total Protein Albumin Triglycerides Cholesterol Total LDL Cholesterol HDL Cholesterol Urine Color Yellow Urine Appearance Clear Urine pH 5.5 Ur Specific [place] 1.008 L Urine Protein Negative Urine Glucose (UA) Negative Urine Ketones Negative Urine Blood Negative Urine Nitrite Negative Urine Bilirubin Negative Urine Urobilinogen 0.2 Ur Leukocyte Esterase Trace Urine WBC (Auto) 22 Urine RBC (Auto) 4 Urine Casts (Auto) 0 U Epithel Cells (Auto) 4 Urine Bacteria (Auto) 79 Opiates Screen Methadone Screen Barbiturate Screen Phencyclidine Screen Ur Amphetamines Screen MDMA (Ecstasy) Screen Benzodiazepines Screen Cocaine Screen U Marijuana (THC) Screen COVID-19 (KAILASH) Not detected Blood Type B NEGATIVE Antibody Screen Negative 01/26/20 01/27/20 01/27/20 22:40 01:05 01:05 WBC RBC Hgb Hct MCV MCH MCHC RDW Plt Count MPV Absolute Neuts (auto) Neutrophils % Lymphocytes % Monocytes % Eosinophils % Basophils % Nucleated RBC % PT with INR INR PTT (Actin FS) Sodium Potassium Chloride Carbon Dioxide Anion Gap BUN Creatinine Est GFR (CKD-EPI)AfAm Est GFR (CKD-EPI)NonAf Random Glucose Calcium Phosphorus Magnesium Total Bilirubin AST ALT Alkaline Phosphatase Creatine Kinase Troponin I < 0.02 B-Natriuretic Peptide Total Protein Albumin Triglycerides Cholesterol Total LDL Cholesterol HDL Cholesterol Urine Color Yellow Urine Appearance Clear Urine pH 7.0 D Ur Specific [place] 1.012 Urine Protein Negative Urine Glucose (UA) Negative Urine Ketones Negative Urine Blood Negative Urine Nitrite Negative Urine Bilirubin Negative Urine Urobilinogen 0.2 Ur Leukocyte Esterase Negative Urine WBC (Auto) Urine RBC (Auto) Urine Casts (Auto) U Epithel Cells (Auto) Urine Bacteria (Auto) Opiates Screen Negative Methadone Screen Negative Barbiturate Screen Negative Phencyclidine Screen Negative Ur Amphetamines Screen Negative MDMA (Ecstasy) Screen Negative Benzodiazepines Screen Negative Cocaine Screen Negative U Marijuana (THC) Screen Negative COVID-19 (KAILASH) Blood Type Antibody Screen 01/27/20 01/27/20 05:34 05:34 WBC 6.5 RBC 4.15 Hgb 12.4 Hct 37.4 MCV 90.1 MCH 29.9 MCHC 33.2 RDW 13.2 Plt Count 240 MPV 8.2 Absolute Neuts (auto) Neutrophils % Lymphocytes % Monocytes % Eosinophils % Basophils % Nucleated RBC % PT with INR INR PTT (Actin FS) Sodium 144 Potassium 3.7 Chloride 110 H Carbon Dioxide 24 Anion Gap 10 BUN 16.2 Creatinine 0.8 Est GFR (CKD-EPI)AfAm 89.67 Est GFR (CKD-EPI)NonAf 77.37 Random Glucose 120 H Calcium 8.6 Phosphorus 4.3 Magnesium 2.0 Total Bilirubin 0.3 AST 14 L ALT 21 Alkaline Phosphatase 53 Creatine Kinase Troponin I B-Natriuretic Peptide Total Protein 6.6 Albumin 3.5 Triglycerides 117 Cholesterol 234 H Total LDL Cholesterol 148 H HDL Cholesterol 56 Urine Color Urine Appearance Urine pH Ur Specific [place] Urine Protein Urine Glucose (UA) Urine Ketones Urine Blood Urine Nitrite Urine Bilirubin Urine Urobilinogen Ur Leukocyte Esterase Urine WBC (Auto) Urine RBC (Auto) Urine Casts (Auto) U Epithel Cells (Auto) Urine Bacteria (Auto) Opiates Screen Methadone Screen Barbiturate Screen Phencyclidine Screen Ur Amphetamines Screen MDMA (Ecstasy) Screen Benzodiazepines Screen Cocaine Screen U Marijuana (THC) Screen COVID-19 (KAILASH) Blood Type Antibody Screen Current Medications Generic Name Dose Route Start Last Admin Trade Name Freq PRN Reason Stop Dose Admin Acetaminophen 650 mg 01/27/20 01:37 01/27/20 09:46 Tylenol - PO 650 mg Q6H PRN Administration PAIN LEVEL 1-5 Amlodipine Besylate 5 mg 01/27/20 10:00 01/27/20 10:03 Norvasc - PO 5 mg DAILY [facility] Administration Atorvastatin Calcium 10 mg 01/27/20 22:00 Lipitor - PO [facility] Home Medications Medication Instructions Recorded Simvastatin [Zocor] 20 mg PO HS 01/26/20 ASSESSMENT/PLAN: 64 year old female with history of HLD, presents s/p syncopal event with head injury. CT Head (prelim read) - possible small SDH, thickened falx cerebri CT C-spine - DJD, no acute findings. 1. Acute Subdural Hematoma ?sec to head trauma No focal neurological deficits. Superficial laceration to occiput s/p eve. Neurosurgery eval and repeat CT Head. PT eval. 2. Syncope, etiology unclear. Echo and Carotid Duplex ordered. ECG - SR 1st degree HB, TropI negative. Telemonitoring Cardio evaluation. 3. HTN - Uncontrolled, started on Norvasc. Will monitor. 4. HLD - LDL 148. Will determine compliance with current Statin regimen - may need escalation/change to Lipitor 20mg. DVT Px - SCDs. Heparin held due to SDH. Visit type - Emergency Visit Emergency Visit: Yes ED Registration Date: 01/26/20 Care time: The patient presented to the Emergency Department on the above date and was hospitalized for further evaluation of their emergent condition. - New Patient This patient is new to me today: Yes Date on this admission: 01/27/20 - Critical Care Critical Care patient: No - Discharge Referral Referred to [facility] No - Medication Review Med list reviewed for High Risk Meds patients 65 and older: Yes
--- NOTE | 2020-01-27 18:14 | EKG ---
Test Reason : Blood Pressure : / mmHG Vent. Rate : 078 BPM Atrial Rate : 078 BPM P-R Int : 242 ms QRS Dur : 082 ms QT Int : 394 ms P-R-T Axes : 039 -07 048 degrees QTc Int : 449 ms POOR DATA QUALITY, INTERPRETATION MAY BE ADVERSELY AFFECTED SINUS RHYTHM WITH 1ST DEGREE A-V BLOCK NONSPECIFIC ST ABNORMALITY BORDERLINE ECG Confirmed by MD RONN, BAM ([id number]) on 01/27/2020 6:14:39 PM Referred By: Confirmed By:BAM BRODY MD
[2020-01-27] MEDS ORDERED: ATORVASTATIN CA 20 MG TABLET (FP) ONE (21:50)
[2020-01-27] MEDS ORDERED: ATORVASTATIN CA 10 MG TABLET (FP) PO SCH (22:00)
[2020-01-27] MEDS ORDERED: ATORVASTATIN CA 20 MG TABLET (FP) PO SCH (22:00)
[2020-01-27] MEDS ORDERED: PATIENT'S OWN MEDICATION (NON-FORMULARY) (Simvastatin [Zocor] 20 MG) PO SCH (22:00)
[2020-01-28] MEDS ORDERED: ACETAMINOPHEN 325 MG TABLET (FP) ONE (02:23)
[2020-01-28] MEDS: ACETAMINOPHEN 325 MG TABLET (FP) PO PRN (02:41)
[2020-01-28] MEDS ORDERED: amLODIPine BESYLATE 5 MG TABLET (FP) ONE (09:17)
--- NOTE | 2020-01-28 09:46 | CONSULT ---
Consult - text type - Consultation Consultation Note: NEUROSURGERY CONSULTATION Cely Arias is a 64 year old Latin female who has a past medical history of hyperlipidemia and palpitations who presented after a syncopal episode while gardening outdoors. She was brought to the [facility] ED and evaluated with CT Head which revealed suggestions of the closed head injury with a small amount of subarachnoid blood adjacent to the falx without mass effect. Patient has been under observation in the ED for [address] Head CT is stable. She has returned to her Neurological baseline. Patient currently undergoing Cardiac evaluation. There is no further need for imaging or inpatient observation for her closed head injury.
--- NOTE | 2020-01-28 10:10 | CONSULT ---
Admitting History and Physical - Admission History of Present Illness: 64 year old female with history of HLD, presents s/p syncopal event fell backward and hit head, small lac to back of head CT Head (prelim read) - possible small SDH, thickened falx cerebri CT C-spine - DJD, no acute findings. Acute Subdural Hematoma ?sec to head trauma Selected Entries 01/27/20 01/28/20 09:50 05:59 Wound Type [ laceration Posterior Head] Temperature 98.1 F Pulse Rate [ 62 Apical] Blood Pressure 137/76 [Right Arm] Laboratory Tests 01/26/20 01/27/20 18:45 05:34 WBC 6.5 COVID-19 (KAILASH) Not detected REg diet/thin liquid ordered History Source: Patient Limitations to Obtaining History: No Limitations - Past Medical History Cardiovascular: Yes: Other (Hyperlipidemia) - Smoking History Smoking history: Never smoked History - Admission Reason For Visit: TRAUMATIC INJURY OF HEAD,SYNCOPE AND COLLAPSE - Diagnostics X-ray: Report Reviewed CT Scan: Report Reviewed - General Mental Status: Alert and Oriented, Awake and Alert, Able to Follow Commands Attention: Intact Ability to Follow Directions: Excellent Head/Neck Control: WFL - Hearing Hearing: Functional Speech Evaluation - Communication Communication: Yes: Within Normal Limits Oral Expression Ability: Yes: No Impairment - Speech Production Able to Make Needs Known: Yes: WNL Intelligibility: Yes: WNL - Speech Characteristics Voice Loudness: Normal Voice Pitch: Yes: Normal Voice Phonatory-based Quality: Yes: Normal Speech Pattern: Normal Speech Clarity: < 100% Nasal Resonance: Normal Articulation: Yes: Precise Rate of Speech: Intact - Language/Auditory Comprehension Follows: Yes: 1 Stage Simple Commands Observation: Able to respond to yes/no queries: Yes, Yes/No Confusion: No, Comprehends Conversational Speech: Yes - Language/Verbal Expression Able to Respond to Simple Queries: Yes: WNL Able to Communicate Wants and Needs: Yes: WNL Functional Communication Status: Yes: WNL Attention: Yes: 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 - 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: Yes: WNL Short Term Memory: Yes: WNL - Swallow Evaluation/Bedside Assessment Current Nutritional Intake: Regular, Thin Liquids Oral Secretions: Yes: WFL Dentition: Yes: Adequate Facial Symmetry at Rest: Symmetrical Facial Symmetry on Retraction: Symmetrical Facial Movement: Controlled Sensation: Normal Against Resistance Opening: Normal Against Resistance Closing: Normal Pucker Lips: Normal Smile: Normal Lingual Movement: Normal, Symmetric Lingual Speed of Movement: Normal Lingual Movement Strgth Against Opposition: Normal Lingual Movement Characteristics: Normal Velopharyngeal Movement: Normal Laryngeal Elevation: WFL Laryngeal Movement: Able to Palpate Rate of Intake: WFL Bolus Size: WFL Labial Seal: WFL Chewing: WFL Oral Prep Time: WFL A-P Transit: WFL Pocketing: None Timing of Swallow: WFL Coughing/Throat Clear: No Change in Voice: No Recommendations - Speech Evaluation, Impression/Plan Impression: Speech,swallowing, language,cognition intact - Dysphagia Impressions/Plan Swallowing Skills: [facility] Dysphagia Impressions: No Impairment *Silent aspiration: cannot be R/O at bedside Dysphagia Treatment Plan: Elevate HOB during feed - Recommendations Diet Consistency: Regular Medication Administration: Whole with water Liquids: Thin Liquids
[2020-01-28] MEDS: amLODIPine BESYLATE 5 MG TABLET (FP) PO SCH (10:16)
--- NOTE | 2020-01-28 11:18 | PN ---
Progress Note, Physician Chief Complaint: no new complaints telemetry no events. History of Present Illness: 64-year-old female with history of hyperlipidemia now presenting after a syncopal event, fall sustaining scalp laceration. The patient is doing quite well. Mentating well. Denies chest pains and shortness of breath. No palpitations. Denied prior such events. Neurologically intact. There is no evidence of ischemia nor acute coronary syndrome. ECG nsr first deg AVB nssttw changes. CTH minimal SDH. carotid 01/28/20 no stenosis. - Current Medication List Current Medications: Active Medications Acetaminophen (Tylenol -) 650 mg PO Q6H PRN PRN Reason: PAIN LEVEL 1-5 Last Admin: 01/28/20 02:41 Dose: 650 mg Documented by: Amlodipine Besylate (Norvasc -) 5 mg PO DAILY [facility] Last Admin: 01/28/20 10:16 Dose: 5 mg Documented by: Atorvastatin Calcium (Lipitor -) 20 mg PO HS [facility] Last Admin: 01/27/20 22:00 Dose: 20 mg Documented by: - Objective Vital Signs: Vital Signs Temperature 98.1 F 01/28/20 05:59 Pulse Rate 62 01/28/20 05:59 Respiratory Rate 18 01/28/20 05:59 Blood Pressure 137/76 01/28/20 05:59 O2 Sat by Pulse Oximetry (%) 98 01/28/20 05:59 Constitutional: Yes: No Distress, Calm Eyes: Yes: Conjunctiva Clear, EOM Intact HENT: Yes: Atraumatic, Normocephalic Neck: Yes: Supple, Trachea Midline Cardiovascular: Yes: Regular Rate and Rhythm Respiratory: Yes: CTA Bilaterally Gastrointestinal: Yes: Normal Bowel Sounds, Soft Musculoskeletal: Yes: WNL Extremities: Yes: WNL Edema: No Peripheral Pulses WNL: Yes Labs: CBC, BMP 01/27/20 05:34 01/27/20 05:34 INR, PTT INR 0.97 (0.83-1.09) 01/26/20 17:10 Assessment/Plan 64-year-old female with history of hyperlipidemia now presenting after a syncopal event, fall sustaining scalp laceration. The patient is doing quite well. Mentating well. Denies chest pains and shortness of breath. No palpitations. Denied prior such events. Neurologically intact. There is no evidence of ischemia nor acute coronary syndrome. ECG nsr first deg AVB nssttw changes CTH minimal SDH. Admit to a monitored setting. Start Norvasc 5 mg daily for better blood pressure control. Echo pending. Carotid Dopplers are negative. Will follow with you.
--- NOTE | 2020-01-28 12:04 | ECHO ---
Name: MARIO BRETT Exam:Adult Echocardiogram Study Date: 01/28/2020 08:42 AM Age: 64 yrs Reason For Study: SYNCOPE Height: 60 in Weight: 137 lb BSA: 1.6 m2 MMode/2D Measurements & Calculations IVSd: 1.1 cm Ao root diam: 3.2 cm LVIDd: 4.4 cm LA dimension: 3.7 cm LVIDs: 2.6 cm ACS: 1.8 cm LVPWd: 0.94 cm LVPWs: 0.89 cm EDV(Teich): 89.9 ml ESV(Teich): 24.9 ml LVOT diam: 2.2 cm LAV (MOD-bp): 36.0 ml TAPSE: 1.4 cm RV S Linwood: 11.3 cm/sec Doppler Measurements & Calculations MV V2 max: 82.7 cm/sec MV E max linwood: 57.8 cm/sec MV max P.7 mmHg MV A max linwood: 78.5 cm/sec MV V2 mean: 52.4 cm/sec MV E/A: 0.74 MV mean P.0 mmHg MV dec time: 0.18 sec MV V2 VTI: 21.0 cm Ao V2 max: 107.2 cm/sec LV V1 max P.7 mmHg Ao max P.6 mmHg LV V1 max: 96.7 cm/sec ANISH(V,D): 3.3 cm2 PA V2 max: 96.4 cm/sec Med Peak E' Linwood: 4.7 cm/sec PA max P.7 mmHg Med E/e': 12.2 Lat Peak E' Linwood: 8.4 cm/sec Lat E/e': 6.8 Procedure A complete two-dimensional transthoracic echocardiogram was performed (2D, M-mode, Doppler and color flow Doppler). Left Ventricle The left ventricle is normal in size. Basal septum is hypertrophied. Left ventricular systolic functi on is normal. Ejection Fraction = 65-70%. Grade I diastolic dysfunction, (abnormal relaxation pattern). No regional wall motion abnormalities noted. Right Ventricle The right ventricle is normal size. The right ventricular systolic function is normal. RV systolic TD I is 11 cm/s. Atria The left atrial size is normal. LA volume index is 22 ml/m2. Right atrial size is normal. Mitral Valve The mitral valve is normal in structure and function. There is trace mitral regurgitation. Tricuspid Valve The tricuspid valve is normal in structure and function. There is Trace to mild tricuspid regurgitati on. Aortic Valve There is mild aortic sclerosis.;. No aortic regurgitation is present. Pulmonic Valve The pulmonic valve is not well visualized. Great Vessels The aortic root is normal size. Pericardium/Pleura There is no pericardial effusion. Interpretation Summary The left ventricle is normal in size. Basal septum is hypertrophied Left ventricular systolic function is normal. No regional wall motion abnormalities noted. Ejection Fraction = 65-70%. Grade I diastolic dysfunction, (abnormal relaxation pattern). The right ventricular systolic function is normal. The left atrial size is normal. Right atrial size is normal. There is trace mitral regurgitation. There is Trace to mild tricuspid regurgitation. There is mild aortic sclerosis. There is no pericardial effusion. Noah Thibodeaux MD 01/28/2020 12:03 PM
[2020-01-28 12:16] VITALS: BP 160/82; PULSE 72; TEMP 98.9
--- NOTE | 2020-01-28 12:30 | PN ---
Teaching Attending Note Name of Resident: Bryan Hutchison ATTENDING PHYSICIAN STATEMENT I saw and evaluated the patient. I reviewed the resident's note and discussed the case with the resident. I agree with the resident's findings and plan as documented. SUBJECTIVE: No Headache/visual disturbance/limb numbness, weakness, tingling. OBJECTIVE: Afebrile, Hemodynamically Stable Last Vital Signs Temp Pulse Resp BP Pulse Ox 98.9 F 72 20 160/82 99 01/28/20 12:16 01/28/20 12:16 01/28/20 12:16 01/28/20 12:01/28/20 12:16 HEENT - Laceration to occiput s/p eve Heart - S1, S2, RRR Lungs - clear to auscultation Abdomen - soft, non-tender. Bowel Sounds normal. Extremities - No edema, no calf tenderness. Neuro - AAO x 3. HINA. EOMI. Tone/Power normal all extremities. Current Medications Generic Name Dose Route Start Last Admin Trade Name Freq PRN Reason Stop Dose Admin Acetaminophen 650 mg 01/27/20 01:37 01/28/20 02:41 Tylenol - PO 650 mg Q6H PRN Administration PAIN LEVEL 1-5 Amlodipine Besylate 5 mg 01/27/20 10:00 01/28/20 10:16 Norvasc - PO 5 mg DAILY [facility] Administration Atorvastatin Calcium 20 mg 01/27/20 22:00 01/27/20 22:00 Lipitor - PO 20 mg HS [facility] Administration Home Medications Medication Instructions Recorded Simvastatin [Zocor] 20 mg PO HS 01/26/20 ASSESSMENT/PLAN: 64 year old female with history of HLD, presents s/p syncopal event with head injury. CT Head - tiny SDH, unchanged on repeat CT. No mass effect or shift. CT C-spine - DJD, no acute findings. 1. Acute Subdural Hematoma sec to head trauma No focal neurological deficits. Superficial laceration to occiput s/p eve. Repeat CT Head - no changes, stable acute/subacute tiny hemorrhage Evaluated by neurosurgery - cleared for discharge. PT eval. NeuroSx follow up on discharge. 2. Syncope, etiology unclear. ECG - SR 1st degree HB, TropI negative. Echo - grade I diastolic dysfunction, normal EF Carotid Duplex - no hemodynamicaly significant stenosis. No Telemonitoring events recorded in ED Cardio evaluated, will follow as out-patient. 3. HTN - Uncontrolled, started on Norvasc. Out-patient follow up.. 4. HLD - LDL 148. Simvastatin changed to Atorvastatin 20mg. Repeat LFTs/Lipid profile in 3-4 weeks 5. Grade I Diastolic CHF - no evidence of decompensation. Tight BP control advised. Started on Norvasc 5mg. Further BP monitoring and titration of meds by PCP/Cardiology. Medically and Neurologically stable for discharge.
--- NOTE | 2020-01-28 16:23 | DS ---
Physical Exam: SUBJECTIVE: Patient seen and examined at bedside. Patient denies any acute overnight events. OBJECTIVE: Vital Signs Period Temp Pulse Resp BP Sys/Davison Pulse Ox Last 24 Hr 98.1 F-98.9 F 62-75 18-20 137-160/76-85 98-99 PHYSICAL EXAM GENERAL: The patient is awake, alert, and fully oriented, in no acute distress. LUNGS: Breath sounds equal, clear to auscultation bilaterally, no wheezes, no crackles, no accessory muscle use. HEART: Regular rate and rhythm, S1, S2 without murmur, rub or gallop. ABDOMEN: Soft, nontender, nondistended, normoactive bowel sounds, no guarding, no rebound, no hepatosplenomegaly, no masses. EXTREMITIES: 2+ pulses, warm, well-perfused, no edema. SKIN: Warm, dry, normal turgor, no rashes or lesions noted. LABS HOSPITAL COURSE: Date of Admission:01/26/20 Ms. Arias is a 64F w a h/o hyperlipidemia and palpitations who presented to the ED for an unwitnessed syncopal episode while gardening. CT head reveals : "In comparison with the prior study there appears to be mild thickening of the falx cerebri. Small subdural hematoma cannot be excluded." Follow up head CT reveals no significant interval changes: "previously described tiny acute/subacute hemorrhage along the anterior falx is again seen without any significant interval change, mass effect or shift of the midline structures. No mass lesions or gross CT evidence of an acute infarct are identified." Carotid doppler study reveals no significant hemodynamic stenosis and Cervical CT of the spine revealed no acute fractures. Patient was evaluated by cardiology (Dr. Viramontes) with echo showing impaired relaxation with a normal EF 65-70%. The patient was noted to have elevated cholesterol with elevated LDL. Home simvistatin was replaced with atorvastatin. The patients blood pressure was elevated for which she was placed on amlodipine. The patient was then evaluated by Neurosurgery (Dr. Hodge) who recommended no further need for imaging or inpatient observation for her closed head injury. Patient is hemodynamically stable and afebrile with resolution of symptoms. Date of Discharge: 01/28/20 Minutes to complete discharge: 40 Discharge Summary Problems reviewed: Yes Reason For Visit: TRAUMATIC INJURY OF HEAD,SYNCOPE AND COLLAPSE Current Active Problems Syncope and collapse (Acute) Condition: Good - Instructions Diet, Activity, Other Instructions: Your Visit: You were admitted to the hospital after passing out. A CAT scan of your head showed a small sub-dural hematoma that has stayed the same in size on a second scan. The neurosurgeon says your mental status is normal, and you have been observed long enough for the bleed. You also had an ultrasound of your carotid arteries that did not shows significant blockage. An ultrasound of your heart (echocardiogram) shows some changes with the relaxation of your heart muscle. Your bad cholesterol (LDL) was elevated even though you are on medication for it. Your simvastatin was changed mary Lipitor. Your blood pressure was elevated, and you were started on a medication (amlodi pine). You are stable right now and are able to go home. Medications: Please START taking AMLODIPINE 5mg once a day Please START taking ATORVASTATIN 20mg once a day Please STOP taking SIMVISTATIN Please continue taking all other home medications as prescribed Follow Up: Please follow up with Dr. Llamas, primary care provider, within 1 week after discharge.You will need the eve removed from your scalp. -You will also need to have your a liver function blood test and lipid blood test in 3-4 weeks, since you are being started on a stronger cholesterol medication. Please follow up with Dr. Wilkins, (cardiology), within 1 week after discharge to discuss the findings of your ultrasound. Please follow up with Dr. Baljit Farfan (Neurosurgery) within 1 week after discharge to discuss your subdural hematoma. Other Instructions: Call Dr. Llamas or go to the emergency room if you experience leg pain, as this can be a side effect of the cholesterol medication. Call 911 or return to the emergency room if you have a change in mental status, dizziness, blurry vision, chest pain, difficulty breathing, or vomiting. Referrals: Nigel Wilkins MD [Staff Physician] - 1 Week (follow up s/p admission for syn cope, BP control, diastolic CHF) Baljit Farfan MD, FAANS [Staff Physician] - 1 Week (Follow up CT finding SDH) Emily Llamas MD [Primary Care Provider] - 1 Week (liver function blood test and lipid blood test - patient placed on 20mg Atorvastatin due to increased LDL and cholesterol) Disposition: HOME - Home Medications Comprehensive Discharge Medication List: Ambulatory Orders Amlodipine Besylate [Norvasc -] 5 mg PO DAILY #30 tablet 01/28/20 Atorvastatin Ca [Lipitor] 20 mg PO HS #30 tablet 01/28/20 This patient is new to me today: Yes Date on this admission: 01/28/20 Emergency Visit: Yes ED Registration Date: 01/26/20 Care time: The patient presented to the Emergency Department on the above date and was hospitalized for further evaluation of their emergent condition. Critical Care patient: No - Discharge Referral Referred to [facility] Med [facility] No ATTENDING PHYSICIAN STATEMENT I saw and evaluated the patient. I reviewed the resident's note and discussed the case with the resident. I agree with the resident's findings and plan as documented. SUBJECTIVE: OBJECTIVE: ASSESSMENT AND PLAN:
--- NOTE | 2020-01-28 17:42 | PN ---
Progress Note (short form) - Note Progress Note: cc syncopal episode HPI 64 year old female histoyr of hld, on statin. She came with episode of passing out and she recovered her mental status quickly. There is no other focal neurological symptoms. There is no seizure like activity, no tongue bite or incotnience. two ct head done , remain unchanged. ct head and ct c spine unermarkable except dense fax cerebri ? 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 Lives in home with . Ambulates without cane or walker; independent in activities daily living. Smoking: Denies smoking cigarettes Alcohol: Denies alcohol consumption Drugs: Denies illicit drug use Allergies No Known Allergies Allergy (Verified 01/26/20 16:56) HOME MEDICATIONS: Home Medications Medication Instructions Recorded Simvastatin [Zocor] 20 mg PO HS 01/26/20 ROS,FHS, SH REVIEWED IN CHART neurological examination alert oriented x 3 cn all intact moving all ext ct head reviewed two ct head unchanged, ? subdural at fax cerebri , neurosurgery consult apprecaited Assessment/Plan 1, syncope , unlikley to be tia or seizure 2. ? subural of fax cerebri, incidental findings, neurosurgery consult apprecaited Plan: agree with plan to follow up outpatient. Thanking so much Duncan Moise MD
== END 2020-01-28 17:18 | disposition home or self-care (01) ==
LOC: JER 16:40 → JERBED 16:44
PROVIDERS: ADMIT Internal Medicine; ATTEND Internal Medicine
PROC: 3E03329 Introduction of Other Anti-infective into Peripheral Vein, Percutaneous Approach (ICD-10-PCS; principal; 2020-01-26)
PROC: 3E033NZ Introduction of Analgesics, Hypnotics, Sedatives into Peripheral Vein, Percutaneous Approach (ICD-10-PCS; 2020-01-26)
DX: S06.5X1A Traumatic subdural hemorrhage with loss of consciousness of 30 minutes or less, initial encounter (principal); E78.5 Hyperlipidemia, unspecified; W18.39XA Other fall on same level, initial encounter; Y93.89 Activity, other specified; Y92.89 Other specified places as the place of occurrence of the external cause; I10 Essential (primary) hypertension; I50.30 Unspecified diastolic (congestive) heart failure; R00.2 Palpitations; R55 Syncope and collapse
CPT/HCPCS: 36415; 70450-TC; 71045-TC-FY; 72125-TC; 80053; 80061; 80307; 81003; 82550; 83721; 83735; 83880; 84100; 84484; 85025; 85027; 85610; 85730; 86850; 86900; 86901; 87086; 93005; 93010; 93306-TC; 93880-TC; 96365; 96375; 97116-GP; 97161-GP; 99285-25; G0378; J0131; U0003

== ENCOUNTER 2022-05-13 20:05 | Inpatient (IN) | payer OTHER ==
[2022-05-13 20:20] VITALS: BMI 31.1
[2022-05-13] MEDS ORDERED: ACETAMINOPHEN 500 MG TABLET (FP) PO ONE (20:50)
[2022-05-13] MEDS ORDERED: ACETAMINOPHEN 500 MG TABLET (FP) ONE (20:53)
[2022-05-14 00:44] LABS: BASO % 1.3 % (0-2.0); EOS % 0.9 % (0-4.5); HEMATOCRIT 38.2 % (32.4-45.2); HEMOGLOBIN 13.1 GM/dL (10.7-15.3); LYMPH % 23.3 % (8-40); MCH 30.2 pg (25.7-33.7); MCHC 34.2 g/dl (32.0-36.0); MEAN CELL VOLUME 88.2 fl (80-96); MEAN PLT VOLUME 7.7 fl (7.5-11.1); MONO % 9.9 % (3.8-10.2); NEUT % 64.6 % (42.8-82.8); PLATELET COUNT 267 10^3/uL (134-434); RBC 4.33 M/mm3 (3.60-5.2); RDW 13.3 % (11.6-15.6); WHITE BLOOD COUNT 8.9 K/mm3 (4.0-10.0)
[2022-05-14 01:05] LABS: CALCIUM 9.2 mg/dL (8.5-10.1)
[2022-05-14 01:06] LABS: BLOOD UREA NITROGEN 13.8 mg/dL (7-18)
[2022-05-14 01:09] LABS: CREATININE 0.7 mg/dL (0.55-1.3)
[2022-05-14] MEDS ORDERED: morphine CARPU-JECT 2 MG/1 ML DISP.SYRIN IVPUSH PRN (01:20)
[2022-05-14] MEDS ORDERED: ACETAMINOPHEN 1000 MG/100 ML BAG IVPB PRN (01:23)
[2022-05-14] MEDS ORDERED: morphine CARPU-JECT 2 MG/1 ML DISP.SYRIN IVPUSH ONE (01:32)
[2022-05-14] MEDS ORDERED: LACTATED RINGERS SOLUTION 1,000 ML/1,000 ML INFUS.BAG IV SCH (06:45)
[2022-05-14] MEDS: ENOXAPARIN NA (PORCINE) 40 MG/0.4 ML DISP.SYRIN SQ SCH (09:56)
[2022-05-14] MEDS: amLODIPine BESYLATE 5 MG TABLET (FP) PO SCH (09:56)
[2022-05-14 10:21] LABS: BASO % 1.1 % (0-2.0); EOS % 1.2 % (0-4.5); HEMATOCRIT 36.9 % (32.4-45.2); HEMOGLOBIN 12.5 GM/dL (10.7-15.3); LYMPH % 20.9 % (8-40); MCH 29.8 pg (25.7-33.7); MCHC 33.9 g/dl (32.0-36.0); MEAN PLT VOLUME 7.9 fl (7.5-11.1); MONO % 11.7 % (3.8-10.2); NEUT % 65.1 % (42.8-82.8); PLATELET COUNT 253 10^3/uL (134-434); RBC 4.19 M/mm3 (3.60-5.2); RDW 13.1 % (11.6-15.6); WHITE BLOOD COUNT 8.7 K/mm3 (4.0-10.0)
[2022-05-14 11:05] LABS: CALCIUM 9.4 mg/dL (8.5-10.1)
[2022-05-14 11:06] LABS: ALBUMIN 3.6 g/dl (3.4-5.0); MAGNESIUM 2.1 mg/dL (1.8-2.4)
[2022-05-14 11:09] LABS: CREATININE 0.6 mg/dL (0.55-1.3); PHOSPHOROUS 3.5 mg/dL (2.5-4.9)
[2022-05-14 11:10] LABS: BILIRUBIN,TOTAL 0.5 mg/dL (0.2-1)
[2022-05-14 11:11] LABS: TOT PROT 7.4 g/dl (6.4-8.2)
[2022-05-14] MEDS: ATORVASTATIN CA 20 MG TABLET (FP) PO SCH (21:25)
[2022-05-15] MEDS: ENOXAPARIN NA (PORCINE) 40 MG/0.4 ML DISP.SYRIN SQ SCH (09:31)
[2022-05-15] MEDS: amLODIPine BESYLATE 5 MG TABLET (FP) PO SCH (09:31)
[2022-05-15 09:37] LABS: BASO % 1.3 % (0-2.0); HEMATOCRIT 38.2 % (32.4-45.2); HEMOGLOBIN 12.6 GM/dL (10.7-15.3); MCH 29.1 pg (25.7-33.7); MEAN CELL VOLUME 88.1 fl (80-96); MEAN PLT VOLUME 8.2 fl (7.5-11.1); NEUT % 62.7 % (42.8-82.8); PLATELET COUNT 277 10^3/uL (134-434); RBC 4.33 M/mm3 (3.60-5.2); RDW 13.3 % (11.6-15.6); WHITE BLOOD COUNT 8.4 K/mm3 (4.0-10.0)
[2022-05-15] MEDS: oxyCODONE HCL 5 MG TABLET PO PRN ×3 (09:37→22:37)
[2022-05-15 10:03] LABS: CALCIUM 8.9 mg/dL (8.5-10.1)
[2022-05-15 10:04] LABS: ALBUMIN 3.4 g/dl (3.4-5.0); BLOOD UREA NITROGEN 14.4 mg/dL (7-18)
[2022-05-15 10:07] LABS: CREATININE 0.6 mg/dL (0.55-1.3); PHOSPHOROUS 3.2 mg/dL (2.5-4.9)
[2022-05-15 10:08] LABS: BILIRUBIN,TOTAL 0.4 mg/dL (0.2-1)
[2022-05-15] MEDS: ATORVASTATIN CA 20 MG TABLET (FP) PO SCH (22:28)
[2022-05-16] MEDS: oxyCODONE HCL 5 MG TABLET PO PRN ×3 (05:50→19:58)
[2022-05-16] MEDS: amLODIPine BESYLATE 5 MG TABLET (FP) PO SCH (09:54)
[2022-05-16] MEDS: ENOXAPARIN NA (PORCINE) 40 MG/0.4 ML DISP.SYRIN SQ SCH (09:54)
[2022-05-16 10:40] LABS: BASO % 0.9 % (0-2.0); EOS % 1.8 % (0-4.5); HEMATOCRIT 35.6 % (32.4-45.2); LYMPH % 15.6 % (8-40); MCH 29.6 pg (25.7-33.7); MCHC 33.7 g/dl (32.0-36.0); MEAN CELL VOLUME 87.8 fl (80-96); MEAN PLT VOLUME 8.1 fl (7.5-11.1); MONO % 11.7 % (3.8-10.2); PLATELET COUNT 260 10^3/uL (134-434); RBC 4.05 M/mm3 (3.60-5.2); RDW 13.4 % (11.6-15.6); WHITE BLOOD COUNT 8.5 K/mm3 (4.0-10.0)
[2022-05-16 11:02] LABS: BLOOD UREA NITROGEN 14.2 mg/dL (7-18); CALCIUM 8.6 mg/dL (8.5-10.1); MAGNESIUM 1.9 mg/dL (1.8-2.4)
[2022-05-16 11:05] LABS: PHOSPHOROUS 3.2 mg/dL (2.5-4.9)
[2022-05-16 11:07] LABS: BILIRUBIN,TOTAL 0.4 mg/dL (0.2-1); TOT PROT 6.6 g/dl (6.4-8.2)
[2022-05-16 11:09] LABS: CREATININE 0.7 mg/dL (0.55-1.3)
[2022-05-16] MEDS: ATORVASTATIN CA 20 MG TABLET (FP) PO SCH (21:43)
[2022-05-16] MEDS: FLUTICASONE PROP 0.05% 16 GM NASAL SPRAY NS SCH (21:43)
[2022-05-17] MEDS: oxyCODONE HCL 5 MG TABLET PO PRN ×4 (01:40→21:49)
[2022-05-17] MEDS: amLODIPine BESYLATE 5 MG TABLET (FP) PO SCH (09:37)
[2022-05-17] MEDS: ENOXAPARIN NA (PORCINE) 40 MG/0.4 ML DISP.SYRIN SQ SCH (09:37)
[2022-05-17] MEDS: FLUTICASONE PROP 0.05% 16 GM NASAL SPRAY NS SCH ×2 (09:38→21:44)
[2022-05-17 10:18] LABS: BASO % 1.1 % (0-2.0); EOS % 2.2 % (0-4.5); HEMATOCRIT 38.7 % (32.4-45.2); HEMOGLOBIN 12.8 GM/dL (10.7-15.3); LYMPH % 24.5 % (8-40); MCH 29.3 pg (25.7-33.7); MCHC 33.2 g/dl (32.0-36.0); MEAN CELL VOLUME 88.2 fl (80-96); MEAN PLT VOLUME 8.1 fl (7.5-11.1); MONO % 15.8 % (3.8-10.2); NEUT % 56.4 % (42.8-82.8); PLATELET COUNT 280 10^3/uL (134-434); RBC 4.38 M/mm3 (3.60-5.2); RDW 13.3 % (11.6-15.6); WHITE BLOOD COUNT 5.9 K/mm3 (4.0-10.0)
[2022-05-17 11:51] LABS: ALBUMIN 3.2 g/dl (3.4-5.0)
[2022-05-17 11:52] LABS: BILIRUBIN,TOTAL 0.5 mg/dL (0.2-1); TOT PROT 7.1 g/dl (6.4-8.2)
[2022-05-17 11:53] LABS: CREATININE 0.7 mg/dL (0.55-1.3)
[2022-05-17] MEDS ORDERED: ACETAMINOPHEN 1000 MG/100 ML BAG IVPB PRN (13:45)
[2022-05-17] MEDS: ATORVASTATIN CA 20 MG TABLET (FP) PO SCH (21:43)
[2022-05-18] MEDS: oxyCODONE HCL 5 MG TABLET PO PRN ×3 (08:12→22:03)
[2022-05-18] MEDS: ENOXAPARIN NA (PORCINE) 40 MG/0.4 ML DISP.SYRIN SQ SCH (09:42)
[2022-05-18] MEDS: amLODIPine BESYLATE 5 MG TABLET (FP) PO SCH (09:42)
[2022-05-18] MEDS: FLUTICASONE PROP 0.05% 16 GM NASAL SPRAY NS SCH ×2 (09:42→22:05)
[2022-05-18] MEDS ORDERED: ACETAMINOPHEN 1000 MG/100 ML BAG IVPB PRN (15:01)
[2022-05-18] MEDS ORDERED: ACETAMINOPHEN 500 MG TABLET (FP) PO PRN (15:01)
[2022-05-18] MEDS: ATORVASTATIN CA 20 MG TABLET (FP) PO SCH (22:05)
[2022-05-19] MEDS: amLODIPine BESYLATE 5 MG TABLET (FP) PO SCH (09:50)
[2022-05-19] MEDS: oxyCODONE HCL 5 MG TABLET PO PRN ×3 (09:50→23:42)
[2022-05-19] MEDS: ENOXAPARIN NA (PORCINE) 40 MG/0.4 ML DISP.SYRIN SQ SCH (09:51)
[2022-05-19] MEDS: FLUTICASONE PROP 0.05% 16 GM NASAL SPRAY NS SCH ×2 (09:53→21:46)
[2022-05-19] MEDS ORDERED: DOCUSATE SODIUM 100 MG CAPSULE (FP) PO ONE (12:14)
[2022-05-19] MEDS ORDERED: POLYETHYLENE GLYCOL (HEALTHYLAX) 3350 17 GM PACKET PO ONE (12:15)
[2022-05-19] MEDS: ATORVASTATIN CA 20 MG TABLET (FP) PO SCH (21:46)
[2022-05-20] MEDS: oxyCODONE HCL 5 MG TABLET PO PRN ×3 (08:31→21:48)
[2022-05-20] MEDS: amLODIPine BESYLATE 5 MG TABLET (FP) PO SCH (10:22)
[2022-05-20] MEDS: ENOXAPARIN NA (PORCINE) 40 MG/0.4 ML DISP.SYRIN SQ SCH (10:23)
[2022-05-20] MEDS: FLUTICASONE PROP 0.05% 16 GM NASAL SPRAY NS SCH ×2 (10:26→21:53)
[2022-05-20] MEDS: ATORVASTATIN CA 20 MG TABLET (FP) PO SCH (21:48)
[2022-05-21] MEDS: amLODIPine BESYLATE 5 MG TABLET (FP) PO SCH (09:03)
[2022-05-21] MEDS: oxyCODONE HCL 5 MG TABLET PO PRN (09:03)
[2022-05-21] MEDS: FLUTICASONE PROP 0.05% 16 GM NASAL SPRAY NS SCH (09:04)
[2022-05-21] MEDS ORDERED: ENOXAPARIN NA (PORCINE) 40 MG/0.4 ML DISP.SYRIN SQ SCH (11:30)
[2022-05-21 14:50] VITALS: BP 130/76; PULSE 72; RESP 18; TEMP 98.3
== END 2022-05-21 14:42 | disposition home or self-care (01) | DRG 562 ==
LOC: JER 20:05 → JERBED 05-14 00:06 → OBSVTOIN 05-14 05:18 → J8W 05-14 06:40
PROVIDERS: ADMIT Internal Medicine; ATTEND Internal Medicine
PROC: 2W38X1Z Immobilization of Right Upper Extremity using Splint (ICD-10-PCS; principal; 2022-05-14)
DX: S82.045A Nondisplaced comminuted fracture of left patella, initial encounter for closed fracture (principal); U07.1 COVID-19; S52.591A Other fractures of lower end of right radius, initial encounter for closed fracture; I10 Essential (primary) hypertension; E78.5 Hyperlipidemia, unspecified; W18.39XA Other fall on same level, initial encounter; Y92.89 Other specified places as the place of occurrence of the external cause; Y99.8 Other external cause status
CPT/HCPCS: 0241U-QW; 36415; 70450-TC; 72125-TC; 73070-TC-RT-FY; 73110-TC-RT-FY; 73130-TC-RT-FY; 73562-TC-LT-FY; 80048; 80053; 83036; 83735; 84100; 85025; 93005; 93010; 94010; 97116-GP; 97162-GP; 99285-25; C9803-CS; G0378; U0003; U0005